=== PATIENT | male | born 1965 | race Caucasian/White ===

== ENCOUNTER 2017-01-06 15:07 | Emergency (ER) | payer SELFPAY ==
[~2017-01-06] VITALS: Ht 172.7 cm; Wt 76.2 kg
--- NOTE | 2017-01-06 15:20 | NUR ---
AAOX3, C/O HEADACHE, L SIDED, SHARP 10/10, NON RADIATING X 3 MIN NOW RESOLVED. RESP IS EVEN AND UNLABORED WITH NAD NOTED. SKIN IS WARM AND DRY. DR HU AT BS FOR EVAL.
--- NOTE | 2017-01-06 16:28 | NUR ---
DR HU AT BS FOR AN UPDATE AND RE-EVAL.
--- NOTE | 2017-01-06 16:34 | NUR ---
Patient discharged to home in stable condition. Written and verbal after care instructions given. Patient verbalizes understanding of instruction.
[2017-01-06 16:35] VITALS: BP 120/85
== END 2017-01-06 16:36 | disposition home or self-care (01) ==
LOC: ER 15:12
DX: R51 Headache (principal); F10.20 Alcohol dependence, uncomplicated
CPT/HCPCS: 70450; 99284; A4606; Z7610